=== PATIENT | female | born 1985 | race Caucasian/White ===

== ENCOUNTER 2017-04-28 15:40 | Emergency (ER) | payer MEDICAID ==
[~2017-04-28] VITALS: Ht 165.1 cm; Wt 72.0 kg
[~2017-04-28 15:40] MED LIST: METH10TA PO; XANA1TAB6 PO
[2017-04-28 15:43] VITALS: BP 136/75; PULSE 126; RESP 18; TEMP 100.4; O2SAT 99
--- NOTE | 2017-04-28 15:46 | PD ---
Physical Exam Time Seen by Provider: 15:44 Narrative 32-year-old female presents with complaint of right flank pain 3 days. Reports nausea and vomiting. Reports fever MAXIMUM TEMPERATURE of 102.3 last night. Denies urinary or vaginal symptoms. Denies history of kidney stones. Has IUD and cannot report eft menses. Patient seen in triage. Vital signs reviewed. Patient taken to medical bed. Data Data Last Documented VS Vital Signs Date Time Temp Pulse Resp B/P (MAP) Pulse Ox O2 Delivery O2 Flow Rate FiO2 04/28/17 15:43 100.4 126 18 136/75 (95) 99 MDM Supervised Visit with CHRISTOPHER: Kathe Knight Apr 28, 2017 15:46
[2017-04-28] MEDS ORDERED: SODIUM CHLOR 0.9% 1000 ML INJ 1,000 ML IV ONE (16:00)
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
[2017-04-28 16:26] VITALS: BP 118/67; PULSE 110; RESP 18; O2SAT 99
--- NOTE | 2017-04-28 16:52 | RADRPT ---
EXAM DATE/TIME: 04/28/2017 16:26 [facility] COMPARISON: No previous studies available for comparison. INDICATIONS : Fever and vomting. MEDICAL HISTORY : None. SURGICAL HISTORY : None. ENCOUNTER: Initial ACUITY: 2 days PAIN SCORE: 0/10 LOCATION: Bilateral chest FINDINGS: A single view of the chest demonstrates the lungs to be symmetrically aerated without evidence of mas s, infiltrate or effusion. The cardiomediastinal contours are unremarkable. Osseous structures are intact. CONCLUSION: Normal examination. Jesus Osborn MD on April 28, 2017 at 16:49 Board Certified Radiologist. This report was verified electronically.
[2017-04-28] MEDS ORDERED: IOHEXOL 350 MG/ML 10 ML VIAL (for RAD DIAG) IV PUSH ONE (16:54)
[2017-04-28 16:57] LABS: AUTOMATED NEUTROPHIL # 9.9 TH/MM3 (1.8-7.7); BASOPHIL % 0.3 % (0.0-2.0); EOSINOPHIL % 0.1 % (0.0-4.0); HEMATOCRIT 44.5 % (35.0-46.0); HEMO FLAGS DIFF FINAL; LYMPH % 7.4 % (9.0-44.0); LYMPHOCYTE # 0.9 TH/MM3 (1.0-4.8); MEAN CELL VOLUME 96.4 FL (80.0-100.0); MEAN CORPUSCULAR HEMOGLOBIN 32.8 PG (27.0-34.0); MEAN CORPUSCULAR HGB CONC 34.1 % (32.0-36.0); MONO % 8.7 % (0.0-8.0); NEUT % 83.5 % (16.0-70.0); PLATELET COUNT 208 TH/MM3 (150-450); RED BLOOD COUNT 4.62 MIL/MM3 (4.00-5.30); RED CELL DISTRIBUTION WIDTH 13.2 % (11.6-17.2); WHITE BLOOD COUNT 11.9 TH/MM3 (4.0-11.0)
[2017-04-28 17:02] LABS: BACTERIA, URINE FEW /hpf; BLOOD, URINE MOD (NEG); GLUCOSE,URINE NEG (NEG); KETONE, URINE 10 mg/dL (NEG); NITRITE,URINE POS (NEG); SQUAMOUS EPITHELIAL CELL URINE 5 /hpf (0-5); URINE COLOR YELLOW (YELLW/STRAW)
[2017-04-28 17:03] LABS: COMMENT (UR) CATH-CULTURE IND; CULTURE IF INDICATED CATH CULTURE IND
[2017-04-28 17:10] LABS: ALT (GPT) 54 U/L (10-53); ANION GAP 9 MEQ/L (5-15); AST (GOT) 21 U/L (15-37); BICARBONATE 24.5 MEQ/L (21.0-32.0); BLOOD UREA NITROGEN 10 MG/DL (7-18); CHLORIDE 105 MEQ/L (98-107); GLOMERULAR FILTRATION RATE 73 ML/MIN (>89); POTASSIUM 3.5 MEQ/L (3.5-5.1); SODIUM (NA) 138 MEQ/L (136-145)
[2017-04-28 17:12] LABS: ALKALINE PHOSPHATASE 79 U/L (45-117); TOTAL BILIRUBIN ADULT 1.2 MG/DL (0.2-1.0)
--- NOTE | 2017-04-28 17:13 | RADRPT ---
EXAM DATE/TIME: 04/28/2017 16:48 [facility] COMPARISON: CT ABDOMEN & PELVIS W CONTRAST, May 15, 2015, 18:20. INDICATIONS : Abdomen pain. IV CONTRAST: 100 cc Omnipaque 350 (iohexol) IV ORAL CONTRAST: No oral contrast ingested. RADIATION DOSE: 9.96 CTDIvol (mGy) MEDICAL HISTORY : Carcinoma, not otherwise specified. SURGICAL HISTORY : None. ENCOUNTER: Initial ACUITY: 1 day PAIN SCALE: 5/10 LOCATION: Bilateral abdomen TECHNIQUE: Volumetric scanning of the abdomen and pelvis was performed. Using automated exposure control and ad justment of the mA and/or kV according to patient size, radiation dose was kept as low as reasonably achievable to obtain optimal diagnostic quality images. DICOM format image data is available electro nically for review and comparison. FINDINGS: Lung bases are clear. Bilateral breast implants are noted. No pleural or pericardial effusions. Liver , gallbladder, spleen, pancreas, adrenal glands are unremarkable. Subcentimeter left midpole renal cy st. An IUD is noted within the uterus. There is a cyst associated with the left ovary measuring 14 cm . Right ovary unremarkable. The stomach, small bowel, large bowel, appendix unremarkable. No adenopat hy or aneurysm. The right kidney is inhomogeneous in appearance with inhomogeneous enhancement particularly of the mi dpole laterally. There is urothelial enhancement noted at the right renal pelvis throughout the urete r. There is bladder wall thickening seen greatest anteriorly. The osseous structures are intact. CONCLUSION: 1. Left ovarian cyst, simple in appearance. 2. A left renal cyst. 3. There is inhomogeneous attenuation of the right mid to upper pole kidney, and urothelial enhanceme nt is present and best appreciated on coronal image 50. There is also bladder wall thickening seen ci rcumferentially. Pyelonephritis, ureteritis and cystitis suspected. Followup recommended after approp riate clinical therapy. Lai Head MD on April 28, 2017 at 17:07 Board Certified Radiologist. This report was verified electronically.
[2017-04-28] MEDS ORDERED: CEPH-460 PO (17:41)
--- NOTE | 2017-04-28 17:43 | PD ---
Physical Exam Narrative I, Dr. Melgoza, have reviewed the advance practice practitioner's documentation and am in agreement, met with the patient face to face, made the diagnosis, and the medical decision making was done by me. *My assessment and Findings: Pyelonephritis vs. appendicitis vs. colitis 32yo F with right sided flank pain, fever and nausea since yesterday. Labs reviewed, WBC 11.9. Lactic acid normal at 1.3. Creatinine normal at 0.89. Bilirubin mildly increased at 1.2. CXR normal. Urine negative. UA positive for nitrite. CTa/p showed inhomogeneous attenuation of right mid to uper pole kidney and urothelial enhancement, consistent with pyelonephritis. Pt given ceftriaxone 1gm IV, NS IVF, toradol and zofran. Pt reevaluated after toradol and still in pain so given morphine. Pt tolerating PO. Pt felt better after morphine. Return precautions given. Data Data Last Documented VS Vital Signs Date Time Temp Pulse Resp B/P (MAP) Pulse Ox O2 Delivery O2 Flow Rate FiO2 04/28/17 16:26 110 18 118/67 (84) 99 Room Air 04/28/17 15:43 100.4 Orders Orders Electrocardiogram (04/28/17 16:00) Complete Blood Count With Diff (04/28/17 16:00) Comprehensive Metabolic Panel (04/28/17 16:00) Lactic Acid Sepsis Protocol (04/28/17 16:00) Urinalysis - C+S If Indicated (04/28/17 16:00) Blood Culture (04/28/17 16:00) Chest, Single Ap (04/28/17 16:00) Blood Glucose (04/28/17 16:00) Ecg Monitoring (04/28/17 16:00) Iv Access Insert/Monitor (04/28/17 16:00) Oximetry (04/28/17 16:00) Oxygen Administration (04/28/17 16:00) Sodium Chlor 0.9% 1000 Ml Inj (Ns 1000 M (04/28/17 16:00) Ct Abd/Pel W Iv Contrast(Rout) (04/28/17 16:07) Ed Urine Pregnancytest Poc (04/28/17 16:07) Iohexol 350 Inj (Omnipaque 350 Inj) (04/28/17 16:54) Urine Culture (04/28/17 16:38) Ketorolac Inj (Toradol Inj) (04/28/17 17:45) Ondansetron Inj (Zofran Inj) (04/28/17 17:45) Ceftriaxone Inj (Rocephin Inj) (04/28/17 17:45) Morphine Inj (Morphine Inj) (04/28/17 18:30) Labs Laboratory Tests Test 04/28/17 16:15 04/28/17 16:38 White Blood Count 11.9 TH/MM3 Red Blood Count 4.62 MIL/MM3 Hemoglobin 15.2 GM/DL Hematocrit 44.5 % Mean Corpuscular Volume 96.4 FL Mean Corpuscular Hemoglobin 32.8 PG Mean Corpuscular Hemoglobin Concent 34.1 % Red Cell Distribution Width 13.2 % Platelet Count 208 TH/MM3 Mean Platelet Volume 8.0 FL Neutrophils (%) (Auto) 83.5 % Lymphocytes (%) (Auto) 7.4 % Monocytes (%) (Auto) 8.7 % Eosinophils (%) (Auto) 0.1 % Basophils (%) (Auto) 0.3 % Neutrophils # (Auto) 9.9 TH/MM3 Lymphocytes # (Auto) 0.9 TH/MM3 Monocytes # (Auto) 1.0 TH/MM3 Eosinophils # (Auto) 0.0 TH/MM3 Basophils # (Auto) 0.0 TH/MM3 CBC Comment DIFF FINAL Differential Comment Blood Urea Nitrogen 10 MG/DL Creatinine 0.89 MG/DL Random Glucose 102 MG/DL Total Protein 8.5 GM/DL Albumin 3.7 GM/DL Calcium Level 9.3 MG/DL Alkaline Phosphatase 79 U/L Aspartate Amino Transf (AST/SGOT) 21 U/L Alanine Aminotransferase (ALT/SGPT) 54 U/L Total Bilirubin 1.2 MG/DL Sodium Level 138 MEQ/L Potassium Level 3.5 MEQ/L Chloride Level 105 MEQ/L Carbon Dioxide Level 24.5 MEQ/L Anion Gap 9 MEQ/L Estimat Glomerular Filtration Rate 73 ML/MIN Lactic Acid Level 1.3 mmol/L Urine Color YELLOW Urine Turbidity CLOUDY Urine pH 6.0 Urine Specific [place] 1.015 Urine Protein 100 mg/dL Urine Glucose (UA) NEG mg/dL Urine Ketones 10 mg/dL Urine Occult Blood MOD Urine Nitrite POS Urine Bilirubin NEG Urine Urobilinogen LESS THAN 2.0 MG/DL Urine Leukocyte Esterase LARGE Urine RBC 16 /hpf Urine WBC /hpf Urine WBC Clumps RARE Urine Squamous Epithelial Cells 5 /hpf Urine Bacteria FEW /hpf Microscopic Urinalysis Comment CATH-CULTURE IND MDM Supervised Visit with CHRISTOPHER: Yes Diagnosis Primary Impression: Pyelonephritis Scripts Cephalexin (Keflex) 500 Mg Cap 500 MG PO Q12H for Infection for 10 Days, #20 CAP 0 Refills Prov: Kvng Lamas MD 04/28/17 Izabel Melgoza DO Apr 28, 2017 17:43
[2017-04-28] MEDS ORDERED: KETOROLAC TROMETHAMINE 30 MG/ML (IVP) VIAL IV PUSH ONE (17:45)
[2017-04-28] MEDS ORDERED: ONDANSETRON HCL 4 MG/2 ML VIAL IV PUSH ONE (17:45)
[2017-04-28] MEDS ORDERED: cefTRIAXone INJ 1,000 MG in SODIUM CHLORIDE 0.9% INJ 100 ML IV ONE (17:45)
[2017-04-28] MEDS ORDERED: MORPHINE SULFATE 4 MG/ML INJ IV PUSH ONE (18:30)
[2017-04-28 18:50] VITALS: BP 119/73; PULSE 102; RESP 16; O2SAT 98
--- NOTE | 2017-04-29 15:14 | EKG ---
Date Performed: 04/28/2017 Time Performed: 16:34:02 PTAGE: 32 years EKG: SINUS TACHYCARDIA POSSIBLE LEFT ATRIAL ENLARGEMENT ST DEVIATION AND MODERATE T-WAVE ABNORMA LITY ABNORMAL ECG PREVIOUS TRACING : 02/14/2001 16.12 Compared to prior tracing no significant change DOCTOR: Sarthak Grewal Interpretating Date/Time 04/30/2017 06:59:54
== END 2017-04-28 20:19 | disposition home or self-care (01) ==
LOC: NEPD 15:40
DX: N10 Acute pyelonephritis (principal); B96.20 Unspecified Escherichia coli [E. coli] as the cause of diseases classified elsewhere; R00.0 Tachycardia, unspecified; D64.9 Anemia, unspecified; K21.9 Gastro-esophageal reflux disease without esophagitis
CPT/HCPCS: 71010; 74177; 80053; 81001; 83605; 84703; 85025; 87040; 87077; 87086; 87186; 93005; 96374; 96375; 99285; J0696; J1885; J2270; J2405; J7030; Q9967

== ENCOUNTER 2017-09-14 13:21 | Emergency (ER) | payer SELFPAY ==
[~2017-09-14 13:21] MED LIST changes: +AMOX875T20 PO; +CEPH-460 PO; +CLON.5 PO; +PRED20 PO; +TESS200C PO; +VENTAER INH; +ZOLO20CO PO
[2017-09-14 13:22] VITALS: BP 110/73; PULSE 89; RESP 14; TEMP 98.9; O2SAT 99
[2017-09-14] MEDS ORDERED: DOXY100C PO (13:36)
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
== END 2017-09-14 13:58 | disposition home or self-care (01) ==
LOC: NEPK 13:21
DX: L03.112 Cellulitis of left axilla (principal); D64.9 Anemia, unspecified; F32.9 Major depressive disorder, single episode, unspecified; Z85.41 Personal history of malignant neoplasm of cervix uteri; Z72.0 Tobacco use; Z88.2 Allergy status to sulfonamides
CPT/HCPCS: 99283